=== PATIENT | female | born 1965 | race Caucasian/White ===

== ENCOUNTER 2017-05-21 12:11 | Outpatient (CLI) | payer BC | END 2017-05-21 12:12 | disposition home or self-care (01) | LOC: LABBT 12:11 | PROVIDERS: ATTEND Neurological Surgery | DX: Z01.818 Encounter for other preprocedural examination (principal); M54.16 Radiculopathy, lumbar region ==

== ENCOUNTER 2017-05-28 08:19 | Day surgery (SDC) | payer BC ==
[2017-05-21 12:29] VITALS: BMI 20.9
--- NOTE | 2017-05-28 05:59 | HP ---
HISTORY OF PRESENT ILLNESS: Ms. Campbell is a 52-year-old woman who presents for evaluation and dis cussion of left-sided L5 pains that have been present for the last 8 months as well as some lower ab dominal pains that have been present off and on for many years. She has seen many chiropractors for her pains, which have been on and off that she describes for 15 years. The pain subsequently resol mo, but then over time they return. MRI from [facility] reveals degenerative disk disease at L4-L5 with associated central disk protrusion that was eccentric to the left, compressing bilateral descending L5 nerve . She has not tried any other conservative treatments, but is not particul lalitha interested in any case. PAST MEDICAL HISTORY: Significant for diabetes and hypothyroidism. CURRENT MEDICATIONS: Levothyroxine and Novolin. ALLERGIES: TYLENOL NO.3, MORPHINE, and SULFA. PAST SURGICAL HISTORY: Ovarian mass resection, thyroidectomy, section, and tubal ligation. PHYSICAL EXAMINATION: The patient is alert and oriented x3. Gait is slightly antalgic. Lower extr emity motor exam reveals normal strength in the bilateral lower extremities in all movements. Refle xes are equal and present bilaterally at the patella. She does have a positive left straight leg ra ise. No ankle clonus bilaterally. ASSESSMENT: Lumbar radiculopathy. PLAN: Dr. Mcadams met with the patient, reviewed her imaging and ultimately advocated for a left L4 d iskectomy. He explained to the patient the risks, benefits, and alternatives to the procedure. The patient expressed understanding and would like to move forward with surgery as discussed. I do bel ieve the patient is mentally competent and capable of making medical decisions for herself and we wi ll move forward with surgery as planned. This is Jurgen Simmons PA-C, dictating for Rowdy Mcadams MD
== END 2017-05-28 08:55 | disposition home or self-care (01) ==
LOC: SDC 08:19
PROVIDERS: ATTEND Neurological Surgery
DX: M54.16 Radiculopathy, lumbar region (principal); E11.9 Type 2 diabetes mellitus without complications; E89.0 Postprocedural hypothyroidism; F17.200 Nicotine dependence, unspecified, uncomplicated; Z53.8 Procedure and treatment not carried out for other reasons; Z79.4 Long term (current) use of insulin; Z79.899 Other long term (current) drug therapy; Z88.6 Allergy status to analgesic agent; Z88.5 Allergy status to narcotic agent; Z88.2 Allergy status to sulfonamides; Z98.51 Tubal ligation status; Z98.890 Other specified postprocedural states

== ENCOUNTER 2017-06-13 05:38 | Day surgery (SDC) | payer BC ==
[2017-06-12 10:49] VITALS: BMI 20.9
[2017-06-13] MEDS ORDERED: Fentanyl 250 MCG/5 ML VIAL ONE (06:09)
[2017-06-13] MEDS ORDERED: Midazolam HCl 2 mg/2 ml Vial ONE (06:09)
[2017-06-13] MEDS ORDERED: Thrombin 5000 UNITS/5 ML VIAL ONE (06:23)
[2017-06-13] MEDS ORDERED: Bupivacaine/Epinephrine 0.25% 30 ML VIAL ONE (06:23)
[2017-06-13] MEDS ORDERED: CEFAZOLIN/Water 2 GM/20 ML SYRINGE ONE (06:30)
[2017-06-13] MEDS ORDERED: Ketorolac Tromethamine 30 MG/ML VIAL ONE (08:40)
[2017-06-13] MEDS ORDERED: Fentanyl 100 MCG/2 ML VIAL ONE ×2 (08:40→08:50)
--- NOTE | 2017-06-13 09:58 | OP ---
DATE OF PROCEDURE: 06/13/2017 SURGEON: Abhijeet Mcadams M.D. LOG PROCESSOR OPERATOR: Eric Simmons PA-C. INDICATION: Pain. DIAGNOSIS: Lumbar radiculopathy. PROCEDURE: Left L4 discectomy. ANESTHESIA: General. TECHNIQUE: The patient was brought into the operating room and placed under general anesthesia. She was flipped from a supine to a prone position on the operating room table. A linear incision was pl anned over the L4 segment. After prepping and draping and after an appropriate operative pause, the incision was created. Soft tissues were swept left of midline. A self-retaining retractor was place d in the wound for optimal exposure. After confirming the appropriate location with C-arm fluoroscop y, a high-speed cutting drill bit as well as 2, 3 and 4-mm Kerrisons were then used to perform a alex laminectomy along the inferior aspect of L4 and the superior aspect of L5. The operating microscope was brought into the field where the nerve root was mobilized medially with a nerve root retractor. A protuberant disk was noted. An 11 blade knife was then used to perform an annulotomy. Disk materi al was removed until there was complete decompression of the descending L5 nerve root. The wound was irrigated. Hemostasis was maintained. The procedure came to an end without complication.
[2017-06-13] MEDS ORDERED: HYDROcodone/Acetaminophen 5/325 mg Tablet ONE (10:17)
[2017-06-13] MEDS ORDERED: Ondansetron ODT 4 MG TAB ONE (10:27)
== END 2017-06-13 11:08 | disposition home or self-care (01) ==
LOC: SDC 05:38
PROVIDERS: ATTEND Neurological Surgery
PROC: 01NB0ZZ Release Lumbar Nerve, Open Approach (ICD-10-PCS; principal; 2017-06-13)
PROC: 0ST20ZZ Resection of Lumbar Vertebral Disc, Open Approach (ICD-10-PCS; principal; 2017-06-13)
DX: M54.16 Radiculopathy, lumbar region (principal); E11.9 Type 2 diabetes mellitus without complications; E89.0 Postprocedural hypothyroidism; F17.200 Nicotine dependence, unspecified, uncomplicated; Z79.4 Long term (current) use of insulin; Z79.899 Other long term (current) drug therapy; Z88.6 Allergy status to analgesic agent; Z88.5 Allergy status to narcotic agent; Z88.2 Allergy status to sulfonamides; Z98.51 Tubal ligation status; Z90.721 Acquired absence of ovaries, unilateral; Z98.890 Other specified postprocedural states
CPT/HCPCS: 76001; 96374; J1885; J2250; J3010; Q0162

== ENCOUNTER 2020-12-05 12:15 | Emergency (ER) | payer BC, SELFPAY ==
[2020-12-05 12:59] LABS: #Eosinphils 0.1 thou/uL (0.0-0.7); #Lymphocytes 1.1 thou/uL (1.20-3.40); #Monocytes 0.7 thou/uL (0.11-0.59); #Neutrophils 4.3 thou/uL (1.40-6.50); %Basophils 0.6 % (0.0-1.0); %Eosinophils 0.9 % (0.0-10.0); %Lymphocytes 17.3 % (21.0-51.0); %Monocytes 11.6 % (0.0-10.0); %Neutrophils 69.5 % (42.0-75.0); Hemoglobin 14.4 g/dL (12.0-16.0); Mean Corpuscular HGB CONC 34.3 g/dL (32.0-36.0); Mean Corpuscular Hemoglobin 32.5 pg (27.0-31.0); Mean Corpuscular Volume 94.7 fL (78.0-98.0); Mean Platelet Volume 9.2 fL (7.4-10.4); Platelet Count 180 thou/uL (130-400); RBC Distribution Width 12.4 % (11.5-14.5); Red Blood Cell (RBC) Count 4.45 mill/uL (4.20-5.40); White Blood Cell (WBC) Count 6.2 thou/uL (4.8-10.8)
[2020-12-05 13:23] LABS: Actual Bicarbonate (HCO3v) 24 mEq/L (22-28); Analyzer IN Cardio ER; Base Excess -0.5 mEq/L (-2.0 to +3.0); Calcium, Ionized (venous) 1.16 mmol/L (1.16-1.32); Chloride (VBG) 103 mmol/L (98-106); Potassium (VBG) 3.77 mmol/L (3.70-5.30); Sodium 137.5 mmol/L (133-146); pH (venous) 7.39 (7.32-7.43)
[2020-12-05 13:30] LABS: ALT (SGPT) 12 U/L (8-55); AST (SGOT) 16 U/L (5-34); Albumin 4.2 g/dL (3.5-5.0); Alkaline Phosphatase 118 U/L (40-110); Anion Gap 11 mmol/L (10-20); BUN (Urea Nitrogen) 7 mg/dL (9.8-20.1); Bilirubin, Total 0.5 mg/dL (0.2-1.2); Calc. Creatinine Clearance 0 mL/min (70-130); Calcium 9.9 mg/dL (7.8-10.44); Carbon Dioxide 28 mmol/L (22-29); Chloride 103 mmol/L (98-107); Globulin 3.3 g/dL (2.4-3.5); Glucose 124 mg/dL (70-105); Potassium 3.7 mmol/L (3.5-5.1); Protein, Total 7.5 g/dL (6.0-8.3); Sodium 138 mmol/L (136-145)
[2020-12-05 13:37] LABS: Bacteria/HPF 3+ HPF (None Seen); Bilirubin Negative (Negative); Blood, Urine Negative (Negative); Clarity Clear (Clear); Glucose, Urine (Dipstick) Normal (Negative); Ketone, Urine Negative (Negative); Leukocyte Negative Leu/uL (Negative); Nitrite 1+ (Negative); Protein, Urine (Dipstick) Negative (Neg-Trace); RBC/HPF 0-3 HPF (0-3); Squamous Epithelial None Seen HPF (0-3); Urobilinogen Normal mg/dL (Less than 2); WBC/HPF 0-3 HPF (0-3); pH, Urine 6.5 (5.0-9.0)
[2020-12-05] MEDS ORDERED: Ketorolac Tromethamine 30 MG/ML VIAL ONE (14:08)
== END 2020-12-05 16:50 | disposition home or self-care (01) ==
LOC: ERS 12:15
DX: N39.0 Urinary tract infection, site not specified (principal); E10.9 Type 1 diabetes mellitus without complications; F17.210 Nicotine dependence, cigarettes, uncomplicated; Z79.899 Other long term (current) drug therapy
CPT/HCPCS: 36415; 36416; 72170; 80053; 81003; 81015; 82010; 82805; 84484; 85025; 87077; 87086; 87186; 93005; 96374; J1885

== ENCOUNTER 2021-03-20 08:33 | Emergency (ER) | payer SELFPAY ==
[2021-03-20] MEDS ORDERED: Iopamidol-370 76% 500 ML 1 ML ONE (08:56)
[2021-03-20 09:09] LABS: #Basophils 0.1 thou/uL (0.0-0.2); #Eosinphils 0.2 thou/uL (0.0-0.7); #Lymphocytes 2.7 thou/uL (1.20-3.40); #Monocytes 0.6 thou/uL (0.11-0.59); %Basophils 1.1 % (0.0-1.0); %Eosinophils 2.6 % (0.0-10.0); %Lymphocytes 35.3 % (21.0-51.0); %Monocytes 7.8 % (0.0-10.0); %Neutrophils 53.2 % (42.0-75.0); Hemoglobin 14.2 g/dL (12.0-16.0); Mean Corpuscular HGB CONC 33.2 g/dL (32.0-36.0); Mean Corpuscular Hemoglobin 31.3 pg (27.0-31.0); Mean Corpuscular Volume 94.4 fL (78.0-98.0); Mean Platelet Volume 9.8 fL (7.4-10.4); Platelet Count 167 thou/uL (130-400); RBC Distribution Width 11.4 % (11.5-14.5); Red Blood Cell (RBC) Count 4.54 mill/uL (4.20-5.40); White Blood Cell (WBC) Count 7.6 thou/uL (4.8-10.8)
[2021-03-20 09:27] LABS: Anion Gap 17 mmol/L (10-20); BUN (Urea Nitrogen) 14 mg/dL (9.8-20.1); Calc. Creatinine Clearance 0 mL/min (70-130); Calcium 9.5 mg/dL (7.8-10.44); Carbon Dioxide 22 mmol/L (22-29); Chloride 99 mmol/L (98-107); Glucose 430 mg/dL (70-105); Potassium 4.5 mmol/L (3.5-5.1); Sodium 133 mmol/L (136-145)
[2021-03-20] MEDS ORDERED: Ketorolac Tromethamine 30 MG/ML VIAL ONE (09:41)
[2021-03-20 09:51] LABS: Pregnancy Test - Urine (BHCG) Negative (Negative); Pregu Control Background? CLEAR/WHITE (CLR/WHITE); Pregu Control Bar Appear? YES (CONTROL BAR); Specific Gravity 1.032 (1.002-1.036)
[2021-03-20 09:54] LABS: Bacteria/HPF 1+ HPF (None Seen); Bilirubin Negative (Negative); Blood, Urine Negative (Negative); Clarity Clear (Clear); Glucose, Urine (Dipstick) Greater than 1000 mg/dL (Negative); Ketone, Urine 10 mg/dL (Negative); Leukocyte Negative Leu/uL (Negative); Nitrite 2+ (Negative); Protein, Urine (Dipstick) Negative (Neg-Trace); RBC/HPF None Seen HPF (0-3); Specific Gravity, Urine 1.032 (1.002-1.036); Squamous Epithelial 0-3 HPF (0-3); Urobilinogen Normal mg/dL (Less than 2); WBC/HPF 0-3 HPF (0-3)
== END 2021-03-20 14:02 | disposition home or self-care (01) ==
LOC: ERS 08:33
DX: N28.89 Other specified disorders of kidney and ureter (principal); N39.0 Urinary tract infection, site not specified; Z79.899 Other long term (current) drug therapy; Z79.4 Long term (current) use of insulin; E10.9 Type 1 diabetes mellitus without complications; F17.210 Nicotine dependence, cigarettes, uncomplicated
CPT/HCPCS: 36415; 74177; 80048; 81003; 81015; 81025; 85025; 96374; J1885; Q9967

== ENCOUNTER 2021-04-05 07:47 | Emergency (ER) | payer SELFPAY ==
[2021-04-05] MEDS ORDERED: Ketorolac Tromethamine 30 MG/ML VIAL ONE (09:04)
== END 2021-04-05 10:20 | disposition home or self-care (01) ==
LOC: ERS 07:47
DX: E10.42 Type 1 diabetes mellitus with diabetic polyneuropathy (principal); M25.551 Pain in right hip; M54.5 Low back pain; F17.210 Nicotine dependence, cigarettes, uncomplicated
CPT/HCPCS: 72170; 96372; J1885